=== PATIENT | female | born 1975 | race Caucasian/White ===

== ENCOUNTER → 2016-09-11 | Outpatient (CLI) | payer BC ==
[~2016-09-11] MED LIST: ABILIFY5 MG PO; ADIPEX-P37.5 M1 PO; ADIPEX-P37.5 MG PO; BELVIQ PO; CALCIUM CITRATE1 TA4 PO; LO/OVRAL-28 301 TAB PO; NORCO 325 MG-51 TAB PO; NORCO 325 MG-7.1 TAB PO; PHENTERMINE15 MG PO; PROZAC 20MG20 MG PO; VIIBRYD20 MG PO; VITAMIN B-1000 MCG/T PO; VITAMIN D 50,1.25 MG PO; VITAMINS + IRON1 CTB PO; WELCHOL3.75 GM/Pa PO; WELLBUTRIN XL300 M1 PO
== END ==
LOC: MC.RAD 07:30
DX: Z12.31 Encounter for screening mammogram for malignant neoplasm of breast (principal)

== ENCOUNTER → 2016-09-23 | Outpatient (CLI) | payer BC | LOC: BHSO 15:52 | DX: F41.1 Generalized anxiety disorder (principal) ==

== ENCOUNTER → 2016-11-14 | Outpatient (CLI) | payer BC | LOC: BHSO 16:06 | DX: F33.1 Major depressive disorder, recurrent, moderate (principal) ==

== ENCOUNTER → 2017-01-08 | Outpatient (CLI) | payer BC | LOC: BHSO 13:50 | DX: F41.1 Generalized anxiety disorder (principal) ==

== ENCOUNTER 2017-02-18 13:59 | Outpatient (RCR) | payer OTHER | END 2017-03-20 14:33 | disposition still patient (30) | LOC: WSOH 13:59 | DX: S30.0XXA Contusion of lower back and pelvis, initial encounter (principal); R20.8 Other disturbances of skin sensation; W01.0XXA Fall on same level from slipping, tripping and stumbling without subsequent striking against object, initial encounter; Y99.0 Civilian activity done for income or pay ==

== ENCOUNTER → 2017-03-20 | Outpatient (CLI) | payer OTHER | LOC: BHSO 16:00 | DX: F41.1 Generalized anxiety disorder (principal) ==

== ENCOUNTER → 2017-07-24 | Outpatient (CLI) | payer BC, OTHER | LOC: BHSO 16:18 | DX: F41.1 Generalized anxiety disorder (principal) | CPT/HCPCS: G0463 ==

== ENCOUNTER → 2018-01-28 | Outpatient (CLI) | payer BC | LOC: BHSO 09:36 | DX: F33.42 Major depressive disorder, recurrent, in full remission (principal) | CPT/HCPCS: G0463 ==

== ENCOUNTER → 2018-07-02 | Outpatient (CLI) | payer BC | LOC: BHSO 13:34 | DX: F33.42 Major depressive disorder, recurrent, in full remission (principal) | CPT/HCPCS: G0463 ==

== ENCOUNTER → 2018-09-16 | Outpatient (CLI) | payer BC | LOC: MC.RAD 06:59 | DX: Z12.31 Encounter for screening mammogram for malignant neoplasm of breast (principal); Z98.82 Breast implant status ==

== ENCOUNTER → 2018-11-11 | Outpatient (CLI) | payer BC ==
[~2018-11-11] VITALS: Ht 160 cm; Wt 107.0 kg
[~2018-11-11] MED LIST changes: +HARD NAILS 2.51 CAP PO; -VITAMIN D 50,1.25 MG PO; +VITAMIND3 5000 PO
[2018-11-11 10:11] VITALS: BP 96/64; PULSE 84
== END ==
LOC: LIGHT 03-25 11:21
DX: F41.1 Generalized anxiety disorder (principal); F32.9 Major depressive disorder, single episode, unspecified; E66.9 Obesity, unspecified; Z68.41 Body mass index [BMI] 40.0-44.9, adult; Z71.3 Dietary counseling and surveillance
CPT/HCPCS: G0463

== ENCOUNTER → 2018-12-09 | Outpatient (CLI) | payer BC ==
[~2018-12-09] VITALS: Ht 160 cm; Wt 104.6 kg
[2018-12-09 16:20] VITALS: BP 102/76; PULSE 68
== END ==
LOC: LIGHT 11:55
DX: F41.1 Generalized anxiety disorder (principal); F32.9 Major depressive disorder, single episode, unspecified; E66.9 Obesity, unspecified; Z68.41 Body mass index [BMI] 40.0-44.9, adult; Z71.3 Dietary counseling and surveillance
CPT/HCPCS: G0463

== ENCOUNTER → 2018-12-31 | Outpatient (CLI) | payer BC | LOC: BHSO 14:02 | DX: F33.42 Major depressive disorder, recurrent, in full remission (principal) | CPT/HCPCS: G0463 ==

== ENCOUNTER → 2019-01-20 | Outpatient (CLI) | payer BC ==
[~2019-01-20] VITALS: Ht 160 cm; Wt 104.8 kg
[2019-01-20 11:10] VITALS: BP 94/50; PULSE 80
== END ==
LOC: LIGHT 10:33
DX: F41.1 Generalized anxiety disorder (principal); F32.9 Major depressive disorder, single episode, unspecified; E66.9 Obesity, unspecified; Z68.41 Body mass index [BMI] 40.0-44.9, adult; Z71.3 Dietary counseling and surveillance
CPT/HCPCS: G0463

== ENCOUNTER → 2019-06-24 | Outpatient (CLI) | payer BC | LOC: BHSO 09:57 | DX: F33.42 Major depressive disorder, recurrent, in full remission (principal) | CPT/HCPCS: G0463 ==

== ENCOUNTER → 2019-11-07 | Outpatient (CLI) | payer BC | LOC: MC.RAD 07:49 | DX: Z12.31 Encounter for screening mammogram for malignant neoplasm of breast (principal); Z98.82 Breast implant status ==

== ENCOUNTER → 2019-12-16 | Outpatient (CLI) | payer BC | LOC: BHSO 09:54 | DX: F33.42 Major depressive disorder, recurrent, in full remission (principal) | CPT/HCPCS: G0463 ==

== ENCOUNTER → 2020-02-23 | Outpatient (CLI) | payer BC | LOC: BHSO 14:51 | DX: F41.1 Generalized anxiety disorder (principal) ==

== ENCOUNTER → 2020-03-15 | Outpatient (CLI) | payer BC | LOC: BHSO 14:49 | DX: F31.81 Bipolar II disorder (principal) ==

== ENCOUNTER → 2020-03-16 | Outpatient (CLI) | payer BC | LOC: BHSO 07:58 | DX: F33.42 Major depressive disorder, recurrent, in full remission (principal) | CPT/HCPCS: G0463 ==

== ENCOUNTER → 2020-04-12 | Outpatient (CLI) | payer BC ==
[~2020-04-12] VITALS: Ht 160 cm; Wt 108.0 kg
[~2020-04-12] MED LIST changes: +WELLBUTRIN 100100 MG PO
[2020-04-12 14:08] VITALS: BP 98/60; PULSE 64
== END ==
LOC: LIGHT 08:33
DX: E66.01 Morbid (severe) obesity due to excess calories (principal); Z68.41 Body mass index [BMI] 40.0-44.9, adult
CPT/HCPCS: G0463

== ENCOUNTER → 2020-04-26 | Outpatient (CLI) | payer BC | LOC: BHSO 14:00 | DX: F31.81 Bipolar II disorder (principal) ==

== ENCOUNTER → 2020-11-07 | Outpatient (CLI) | payer BC | LOC: MC.RAD 07:27 | DX: Z12.31 Encounter for screening mammogram for malignant neoplasm of breast (principal); N64.89 Other specified disorders of breast ==

== ENCOUNTER → 2020-11-15 | Outpatient (CLI) | payer BC | LOC: MC.RAD 09:52 | DX: N64.89 Other specified disorders of breast (principal) ==

== ENCOUNTER → 2021-11-11 | Outpatient (CLI) | payer BC | LOC: MC.RAD 06:55 | DX: N63.20 Unspecified lump in the left breast, unspecified quadrant (principal); R59.0 Localized enlarged lymph nodes ==

== ENCOUNTER → 2022-11-20 | Outpatient (CLI) | payer BC | LOC: MC.RAD 07:19 | DX: Z12.31 Encounter for screening mammogram for malignant neoplasm of breast (principal); N64.89 Other specified disorders of breast; R59.9 Enlarged lymph nodes, unspecified ==

== ENCOUNTER 2023-03-13 10:06 | Outpatient (RCR) | payer OTHER | END 2023-03-21 | LOC: WSOH | DX: S90.02XD Contusion of left ankle, subsequent encounter (principal); S70.11XA Contusion of right thigh, initial encounter; S16.1XXD Strain of muscle, fascia and tendon at neck level, subsequent encounter; S40.012D Contusion of left shoulder, subsequent encounter; S60.212D Contusion of left wrist, subsequent encounter; Y99.0 Civilian activity done for income or pay ==

== ENCOUNTER 2023-06-15 05:30 | Emergency (ER) | payer BC ==
[~2023-06-15] VITALS: Ht 157.5 cm; Wt 113.6 kg
[2023-06-15 05:36] VITALS: TEMP 97.7
[2023-06-15 05:59] LABS: BASO # 0.1 K/mm3 (0.0-0.2); BASO % 1.2 % (0.0-2.0); EOS # 0.3 K/mm3 (0.0-0.7); EOS % 3.6 % (0.0-4.0); GRAN # 4.5 K/mm3 (1.4-6.5); GRAN % 59.8 % (42.2-75.2); HEMATOCRIT 39.9 % (37.0-47.0); LYMPH % 26.5 % (20.0-51.0); MEAN CELL VOLUME 84 fl (80.0-100.0); MEAN CORPUSCULAR HEMOGLOBIN 25 pg (27-31); MEAN CORPUSCULAR HGB CONC 30 g/dl (33.0-37.0); MEAN PLATELET VOLUME 9.7 fl (7.4-10.4); MONO # 0.6 K/mm3 (0.1-0.6); MONO % 8.5 % (1.7-9.3); PLATELET COUNT 304 K/mm3 (130-400); RED BLOOD COUNT 4.77 M/mm3 (4.10-5.30)
[2023-06-15 06:11] LABS: ALANINE AMINOTRANSFERASE 20 U/L (0-55); ALBUMIN 3.3 gm/dL (3.5-5.0); ALKALINE PHOSPHATASE 87 U/L (40-150); ANION GAP 10 mmol/L (7-16); AST,SGOT 17 U/L (5-34); BILIRUBIN,TOTAL 0.2 mg/dL (0.2-1.2); BLOOD UREA NITROGEN 16 mg/dL (7-19); CALCIUM 8.8 mg/dL (8.4-10.2); CARBON DIOXIDE 23 mmol/L (22-29); CHLORIDE 106 mmol/L (98-107); CREATININE, serum 1.05 mg/dL (0.57-1.11); GLUCOSE 87 mg/dL (70-99); POTASSIUM 4.3 mmol/L (3.5-4.5); SODIUM 139 mmol/L (136-145); TOTAL PROTEIN 6.5 gm/dL (6.2-8.1)
[2023-06-15 06:18] LABS: TROPONIN-I < 0.010 ng/mL (0.00-0.033)
[2023-06-15] MEDS ORDERED: FOLIC ACID 11 MG/TA1 PO (07:34)
[2023-06-15] MEDS ORDERED: METHOTREXA2.5 MG/TAB PO (07:34)
[2023-06-15 08:30] VITALS: BP 114/57; PULSE 60
== END 2023-06-15 08:30 | disposition home or self-care (01) ==
LOC: COL.ER 05:30
PROVIDERS: Personal Emergency Response Attendant
DX: R06.00 Dyspnea, unspecified (principal); R79.89 Other specified abnormal findings of blood chemistry
CPT/HCPCS: Q9967

== ENCOUNTER → 2023-11-23 | Outpatient (CLI) | payer BC ==
[~2023-11-23] MED LIST changes: +FOLIC ACID 11 MG/TA1 PO; +METHOTREXA2.5 MG/TAB PO
== END ==
LOC: MC.RAD 06:56
DX: Z12.31 Encounter for screening mammogram for malignant neoplasm of breast (principal)

== ENCOUNTER 2023-12-12 18:17 | Emergency (ER) | payer BC ==
[~2023-12-12] VITALS: Ht 160 cm; Wt 109.1 kg
[2023-12-12] MEDS ORDERED: Ondansetron 4 MG/2 ML VIAL IV ONE (18:30)
[2023-12-12 18:48] LABS: BASO # 0.1 K/mm3 (0.0-0.2); BASO % 1.1 % (0.0-2.0); EOS # 0.1 K/mm3 (0.0-0.7); EOS % 1.3 % (0.0-4.0); GRAN # 5.8 K/mm3 (1.4-6.5); GRAN % 64.7 % (42.2-75.2); HEMOGLOBIN 12.1 g/dl (12.5-16.0); LYMPH # 2.1 K/mm3 (1.2-3.4); LYMPH % 23.4 % (20.0-51.0); MEAN CELL VOLUME 82 fl (80.0-100.0); MEAN CORPUSCULAR HEMOGLOBIN 24 pg (27-31); MEAN CORPUSCULAR HGB CONC 30 g/dl (33.0-37.0); MONO # 0.8 K/mm3 (0.1-0.6); MONO % 9.3 % (1.7-9.3); PLATELET COUNT 373 K/mm3 (130-400); RED BLOOD COUNT 5.03 M/mm3 (4.10-5.30); REDCELL DISTRIBUTION WIDTH-CV 16.8 % (11.5-14.5)
[2023-12-12 18:53] LABS: INR 0.9 (0.8-3.0); PROTHROMBIN TIME 10.2 SECONDS (9.7-12.8)
[2023-12-12 19:17] LABS: ALANINE AMINOTRANSFERASE 8 U/L (0-55); ALBUMIN 3.4 g/dL (3.5-5.0); ALCOHOL(ethanol),MEDICAL < 10 mg/dL (0-10); ALKALINE PHOSPHATASE 81 U/L (40-150); ANION GAP 12 mmol/L (7-16); AST,SGOT 14 U/L (5-34); BILIRUBIN,TOTAL 0.2 mg/dL (0.2-1.2); BLOOD UREA NITROGEN 15 mg/dL (7-19); CALCIUM 9.7 mg/dL (8.4-10.2); CHLORIDE 104 mEq/L (98-107); GLUCOSE 145 mg/dL (70-99); POTASSIUM 3.9 mEq/L (3.5-4.5); SODIUM 140 mEq/L (136-145); TOTAL PROTEIN 6.8 g/dl (6.2-8.1)
[2023-12-12 20:58] LABS: TRICYCLIC ANTIDEPRESS URINE NEGATIVE (NEGATIVE)
[2023-12-12 22:42] VITALS: BP 114/66; PULSE 77; TEMP 97.6
== END 2023-12-12 22:53 | disposition home or self-care (01) ==
LOC: COL.ER 18:17
PROVIDERS: Emergency Medicine
DX: R41.82 Altered mental status, unspecified (principal)
CPT/HCPCS: J2405